=== PATIENT | male | born 1960 | race Caucasian/White ===

== ENCOUNTER 2025-05-19 10:06 | Day surgery (SDC) | payer MEDICARE, BC ==
[~2025-05-19 10:06] MED LIST: Midazolam 1 MG/ML 2 ML SDV ONE; Propofol 200 MG/20 ML SDV ONE; Sodium Chloride 0.9% 10 ML Syringe FLUSH PRN
[2025-05-19] MEDS: Lactated Ringers 1,000 ML IV SCH (11:06)
== END 2025-05-19 12:57 | disposition home or self-care (01) ==
LOC: LL.SDS 10:06
PROVIDERS: ATTEND Surgery
DX: Z12.11 Encounter for screening for malignant neoplasm of colon (principal); D12.3 Benign neoplasm of transverse colon; E11.9 Type 2 diabetes mellitus without complications; E78.00 Pure hypercholesterolemia, unspecified; R20.0 Anesthesia of skin; Z79.82 Long term (current) use of aspirin; Z79.84 Long term (current) use of oral hypoglycemic drugs; Z79.899 Other long term (current) drug therapy; Z86.0100 Personal history of colon polyps, unspecified
CPT/HCPCS: 00811; 82947; J2250; J2704; J7120